=== PATIENT | female | born 2000 | race Caucasian/White ===

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

== ENCOUNTER 2022-07-04 12:30 | Inpatient (IN) | payer MEDICAID ==
[~2022-07-04] VITALS: Ht 162.6 cm; Wt 58.8 kg
[~2022-07-04 12:30] MED LIST changes: -TRAZ-251 PO; -VENL150C2 PO; +VENL150C4 PO
[2022-07-04 13:32] LABS: CLARITY,URINE CLOUDY (Clear); COLOR,URINE YELLOW (Yellow); GLUCOSE, URINE NEGATIVE (Neg); KETONES,URINE NEGATIVE (Neg); LEUKOCYTE ESTERASE ,URINE LARGE (Neg); NITRITES, URINE NEGATIVE (Neg); OCCULT BLOOD,URINE LARGE (Neg); PH,URINE 5.5 (4.8-8.0); PROTEIN,URINE 100 mg/dl (Neg)
[2022-07-04 13:33] LABS: URINE HCG NEGATIVE (NEG)
[2022-07-04 13:41] LABS: UA COLLECTION TYPE NON-SPECIFIED
[2022-07-04 13:42] LABS: BACTERIA,URINE 4+ /HPF (Neg); MUCUS STRANDS NONE SEEN /LPF (Neg); SQUAMOUS EPITHELIAL CELL,UR MODERATE /LPF (FEW); WBC,URINE TNTC /HPF (0-4)
[2022-07-04 13:43] LABS: WBC CLUMPS,URINE MANY /HPF (NEGATIVE)
[2022-07-04] MEDS ORDERED: LIDOcaine Viscous 15ml cup MM STA (14:46)
[2022-07-04] MEDS ORDERED: normal saline 1000ML IV soln IVB ONE (14:50)
[2022-07-04] MEDS ORDERED: ondansetron/PF 4mg/2ml inj IV ONE (14:50)
[2022-07-04 15:17] LABS: BASOPHILS % (AUTO) 0 % (0-1); EOSINOPHILS % (AUTO) 0.1 % (0-6); HEMOGLOBIN 12.9 g/dl (12.0-16.0); LYMPHOCYTES # (AUTO) 0.5 X10'3 (1.1-4.8); MEAN CORPUSCULAR HEMOGLOBIN 28.5 PG (27.0-31.0); MEAN CORPUSCULAR VOLUME 83.6 FL (78-98); MEAN PLATELET VOLUME 8.3 FL (7.4-10.4); MONOCYTES # (AUTO) 1.1 X10'3 (0-0.9); MONOCYTES % (AUTO) 6.2 % (2-12); NEUTROPHILS % (AUTO) 90.7 % (42-75); PLATELET COUNT 278 X10'3 (140-440); RED BLOOD COUNT 4.54 X10'6 (4.20-5.60); RED CELL DISTRIBUTION WIDTH 13.8 % (11.5-14.5); WHITE BLOOD COUNT 17.6 X10'3 (4.5-11.0)
[2022-07-04 15:40] LABS: ALANINE AMINOTRANSFERASE 20 U/L (12-78); ALBUMIN 2.6 G/DL (3.4-5.0); ALBUMIN/GLOBULIN RATIO 0.5 (1.1-1.5); ALKALINE PHOSPHATASE 120 IU/L (20-180); ANION GAP 15 (8-16); ASPARTATE AMINO TRANSFERASE 24 U/L (10-37); BILIRUBIN,TOTAL 0.6 MG/DL (0.1-1.0); BLOOD UREA NITROGEN 38 MG/DL (7-18); BUN/CREATININE RATIO 12.7 (6.6-38.0); CALCIUM 8.9 MG/DL (8.5-10.1); CHLORIDE 93 MMOL/L (99-107); CREATININE 2.99 MG/DL (0.40-0.90); GLUCOSE 88 MG/DL (70-104); POTASSIUM 3.1 MMOL/L (3.5-5.1); SODIUM 134 MMOL/L (135-145); TOTAL CARBON DIOXIDE 26.1 MMOL/L (24-32); TOTAL PROTEIN 7.9 G/DL (6.4-8.2); eGFR 20 ML/MIN
[2022-07-04] MEDS ORDERED: CefTRIAXone/D5W-Rocephin 1gm 50 ML IV STA (15:45)
[2022-07-04] MEDS ORDERED: VENL75CA61 PO (15:59)
[2022-07-04] MEDS ORDERED: HYDROcodone/acetaminophen 5mg/325mg tablet PO PRN (16:25)
[2022-07-04] MEDS ORDERED: docusate sod 100mg capsule PO PRN (16:25)
[2022-07-04] MEDS ORDERED: ondansetron/PF 4mg/2ml inj IV PRN (16:25)
[2022-07-04] MEDS ORDERED: POTASSIUM BICARB 20meq eff tab 20 MEQ TABLET.EFF PO PRN ×2 (16:25)
[2022-07-04] MEDS ORDERED: acetaminophen 325mg tablet PO PRN (16:25)
[2022-07-04] MEDS ORDERED: magnesium 2GM in 50ml NS 50 ML IV PRN (16:25)
[2022-07-04] MEDS ORDERED: magnesium hydroxide 30ml (MOM) UD suspension PO PRN (16:25)
[2022-07-04] MEDS ORDERED: mag hydrox/Alum hydrox/simeth 30ml oral suspension PO PRN (16:25)
[2022-07-04] MEDS ORDERED: HYDROcodone/acetaminophen 10/325mg tab PO PRN (16:25)
[2022-07-04] MEDS ORDERED: magnesium 4gm in 100ml NS 100 ML IV PRN (16:25)
[2022-07-04] MEDS ORDERED: LORazepam 0.5 MG tablet PO PRN (16:35)
[2022-07-04] MEDS ORDERED: hydrOXYzine 25 MG tablet PO PRN (16:35)
--- NOTE | 2022-07-04 16:41 | NUR ---
TO CT VIA WC
[2022-07-04] MEDS: normal saline 1000ml 1,000 ML IV SCH (18:23)
[2022-07-04] MEDS: K and/or MAG REPLACEMENT MC SCH (19:47)
--- NOTE | 2022-07-04 19:58 | NUR ---
Pt ambulated to bathroom with a steady gait.
[2022-07-04] MEDS: acetaminophen 325mg tablet PO PRN (21:32)
[2022-07-05] MEDS: normal saline 1000ml 1,000 ML IV SCH ×3 (02:25→22:50)
--- NOTE | 2022-07-05 07:00 | NUR ---
Patient in room ORTHO 4016. I have received report from Nakia SALAZAR and had the opportunity to ask questions and assume patient care.
--- NOTE | 2022-07-05 07:02 | NUR ---
Report called to MARIE Zhang.
[2022-07-05] MEDS: venlafaxine XR 75mg capsule (Q24H) PO SCH ×2 (08:00→09:45)
[2022-07-05] MEDS: K and/or MAG REPLACEMENT MC SCH ×2 (08:00→20:00)
[2022-07-05 08:18] LABS: BASOPHILS % (AUTO) 0.1 % (0-1); EOSINOPHILS % (AUTO) 0.1 % (0-6); HEMOGLOBIN 11.9 g/dl (12.0-16.0); LYMPHOCYTES # (AUTO) 0.8 X10'3 (1.1-4.8); LYMPHOCYTES % (AUTO) 6.4 % (21-51); MEAN CORPUSCULAR HGB CONC 33.2 g/dL (33.0-36.5); MEAN CORPUSCULAR VOLUME 84.5 FL (78-98); MEAN PLATELET VOLUME 7.9 FL (7.4-10.4); MONOCYTES # (AUTO) 1.1 X10'3 (0-0.9); MONOCYTES % (AUTO) 9.1 % (2-12); NEUTROPHILS # (AUTO) 10.5 X10'3 (1.8-7.7); NEUTROPHILS % (AUTO) 84.3 % (42-75); PLATELET COUNT 254 X10'3 (140-440); RED BLOOD COUNT 4.26 X10'6 (4.20-5.60); RED CELL DISTRIBUTION WIDTH 14.4 % (11.5-14.5); WHITE BLOOD COUNT 12.5 X10'3 (4.5-11.0)
[2022-07-05 08:35] LABS: D-DIMER 2.07 MG/L FEU (0-0.50)
[2022-07-05 08:44] LABS: ALANINE AMINOTRANSFERASE 17 U/L (12-78); ALBUMIN 2.1 G/DL (3.4-5.0); ALBUMIN/GLOBULIN RATIO 0.4 (1.1-1.5); ALKALINE PHOSPHATASE 130 IU/L (20-180); ANION GAP 15 (8-16); ASPARTATE AMINO TRANSFERASE 30 U/L (10-37); BILIRUBIN,TOTAL 0.6 MG/DL (0.1-1.0); BLOOD UREA NITROGEN 32 MG/DL (7-18); BUN/CREATININE RATIO 13.3 (6.6-38.0); CALCIUM 8.6 MG/DL (8.5-10.1); CHLORIDE 102 MMOL/L (99-107); CREATININE 2.41 MG/DL (0.40-0.90); GLUCOSE 89 MG/DL (70-104); MAGNESIUM 2.2 MG/DL (1.5-2.4); SODIUM 142 MMOL/L (135-145); TOTAL CARBON DIOXIDE 25.2 MMOL/L (24-32); TOTAL PROTEIN 6.8 G/DL (6.4-8.2); eGFR 26 ML/MIN
[2022-07-05 08:50] LABS: POTASSIUM 2.6 MMOL/L (3.5-5.1)
[2022-07-05 08:56] LABS: C-REACTIVE PROTEIN 33.99 MG/DL (0.0-0.5)
[2022-07-05] MEDS: CefTRIAXone/D5W-Rocephin 1gm 50 ML IV SCH (09:45)
[2022-07-05 11:08] VITALS: BP 93/48
[2022-07-05] MEDS ORDERED: potassium Cl 20 mEq SR tablet PO PRN (11:35)
[2022-07-05] MEDS: potassium Cl 20 mEq SR tablet PO PRN ×2 (12:43→19:51)
[2022-07-05] MEDS: potassium CL 10mEq/100ml bag 100 ML IV PRN ×3 (13:57→17:10)
[2022-07-05 18:00] VITALS: BP 114/81
--- NOTE | 2022-07-05 18:23 | NUR ---
Problems reprioritized. Patient report given, questions answered & plan of care reviewed with Teresa SALAZAR.
--- NOTE | 2022-07-05 18:54 | NUR ---
Patient in room ORTHO 4016. I have received report from MALI SALAZAR and had the opportunity to ask questions and assume patient care.
[2022-07-05] MEDS: enoxaparin 30mg/0.3ml syringe SUBCUT SCH ×2 (19:50→20:00)
[2022-07-05 22:00] VITALS: BP 127/87
[2022-07-05] MEDS: acetaminophen 325mg tablet PO PRN (22:06)
[2022-07-06] MEDS: potassium Cl 20 mEq SR tablet PO PRN (00:24)
--- NOTE | 2022-07-06 06:16 | NUR ---
Patient in room ORTHO 4016. I have received report from Teresa SALAZAR and had the opportunity to ask questions and assume patient care.
--- NOTE | 2022-07-06 06:16 | NUR ---
40MEQ K+ REPLACEMENT GIVEN X 2 LAST NIGHT IN ADDITION TO 3 BAGS 10MEQ OF IV REPLACEMENT. WILL CHECK LABS THIS AM FOR ANY FURTHER REPLACEMENT NEEDS. Problems reprioritized. Patient report given, questions answered & plan of care reviewed with MALI SALAZAR.
[2022-07-06 06:22] VITALS: BP 123/81
[2022-07-06 07:43] LABS: BASOPHILS % (AUTO) 0.3 % (0-1); EOSINOPHILS # (AUTO) 0.1 X10'3 (0-0.9); EOSINOPHILS % (AUTO) 0.9 % (0-6); HEMOGLOBIN 10.6 g/dl (12.0-16.0); LYMPHOCYTES # (AUTO) 1.8 X10'3 (1.1-4.8); LYMPHOCYTES % (AUTO) 17.3 % (21-51); MEAN CORPUSCULAR HEMOGLOBIN 28.3 PG (27.0-31.0); MEAN CORPUSCULAR HGB CONC 33.2 g/dL (33.0-36.5); MEAN CORPUSCULAR VOLUME 85.1 FL (78-98); MEAN PLATELET VOLUME 7.9 FL (7.4-10.4); MONOCYTES # (AUTO) 1.1 X10'3 (0-0.9); MONOCYTES % (AUTO) 10.3 % (2-12); NEUTROPHILS # (AUTO) 7.3 X10'3 (1.8-7.7); NEUTROPHILS % (AUTO) 71.2 % (42-75); PLATELET COUNT 281 X10'3 (140-440); RED BLOOD COUNT 3.76 X10'6 (4.20-5.60); RED CELL DISTRIBUTION WIDTH 14.6 % (11.5-14.5); WHITE BLOOD COUNT 10.3 X10'3 (4.5-11.0)
[2022-07-06] MEDS: venlafaxine XR 75mg capsule (Q24H) PO SCH (07:48)
[2022-07-06] MEDS: CefTRIAXone/D5W-Rocephin 1gm 50 ML IV SCH (07:48)
[2022-07-06] MEDS: enoxaparin 30mg/0.3ml syringe SUBCUT SCH ×2 (07:49→08:00)
[2022-07-06 07:56] LABS: D-DIMER 1.41 MG/L FEU (0-0.50)
[2022-07-06] MEDS: K and/or MAG REPLACEMENT MC SCH (08:00)
[2022-07-06 08:15] LABS: ALANINE AMINOTRANSFERASE 24 U/L (12-78); ALBUMIN 1.7 G/DL (3.4-5.0); ALBUMIN/GLOBULIN RATIO 0.4 (1.1-1.5); ALKALINE PHOSPHATASE 142 IU/L (20-180); ANION GAP 12 (8-16); ASPARTATE AMINO TRANSFERASE 36 U/L (10-37); BILIRUBIN,TOTAL 0.4 MG/DL (0.1-1.0); BLOOD UREA NITROGEN 20 MG/DL (7-18); BUN/CREATININE RATIO 12.7 (6.6-38.0); C-REACTIVE PROTEIN 24.58 MG/DL (0.0-0.5); CHLORIDE 105 MMOL/L (99-107); CREATININE 1.57 MG/DL (0.40-0.90); GLUCOSE 69 MG/DL (70-104); POTASSIUM 3.7 MMOL/L (3.5-5.1); SODIUM 142 MMOL/L (135-145); TOTAL CARBON DIOXIDE 25.1 MMOL/L (24-32); TOTAL PROTEIN 6.1 G/DL (6.4-8.2); eGFR 42 ML/MIN
[2022-07-06] MEDS: normal saline 1000ml 1,000 ML IV SCH (08:43)
[2022-07-06] MEDS: acetaminophen 325mg tablet PO PRN (08:51)
[2022-07-06 11:42] VITALS: BP 108/75
[2022-07-06] MEDS ORDERED: LEVO750T68 PO (12:06)
[2022-07-06] MEDS ORDERED: ASPI81TA52 PO (13:23)
--- NOTE | 2022-07-06 13:49 | NUR ---
Patient discharged home at this time. Patient is stable for discharge Patient discharge medications were discussed with patient and verbal understanding was expressed. Patient next dose of medications were also discussed. Patient IV taken out at the time of discharge canula whole and intact upon inspection. Iv site showed minimal bleeding as well.
== END 2022-07-06 13:19 | disposition home or self-care (01) | DRG 720 ==
LOC: ER 12:32 → ED HOLD 16:29 → ORTHO 4S 07-05 07:30
PROVIDERS: ADMIT Family Medicine; ATTEND Family Medicine
DX: A41.9 Sepsis, unspecified organism (principal); N17.0 Acute kidney failure with tubular necrosis; U07.1 COVID-19; F32.A Depression, unspecified; N20.0 Calculus of kidney; F41.9 Anxiety disorder, unspecified; E87.1 Hypo-osmolality and hyponatremia; E86.0 Dehydration; E87.6 Hypokalemia; N10 Acute pyelonephritis; Z80.1 Family history of malignant neoplasm of trachea, bronchus and lung; Z28.310 Unvaccinated for COVID-19; Z79.899 Other long term (current) drug therapy; Z82.49 Family history of ischemic heart disease and other diseases of the circulatory system
CPT/HCPCS: 36415; 74176; 80053; 81001; 81025; 83605; 83735; 84145; 85025; 85379; 86140; 87040; 87077; 87081; 87088; 87186; 87635; 99285; C9803; G0378; J0696; J1650; J2405; J3480; J7030

== ENCOUNTER 2023-01-09 16:14 | Emergency (ER) | payer MEDICAID ==
[~2023-01-09] VITALS: Ht 167.6 cm; Wt 60.0 kg
[~2023-01-09 16:14] MED LIST changes: +ASPI81TA52 PO; -HYDR25CA PO; +LEVO750T68 PO; -VENL150C4 PO; +VENL75CA61 PO
[2023-01-09 16:58] VITALS: BP 110/64
[2023-01-09] MEDS ORDERED: DOXY1TAB3 PO (18:42)
[2023-01-09] MEDS ORDERED: PREN1CAP37 PO (18:46)
== END 2023-01-09 19:23 | disposition left against medical advice (07) ==
LOC: ER 16:15
DX: O26.899 Other specified pregnancy related conditions, unspecified trimester (principal); Z3A.00 Weeks of gestation of pregnancy not specified
CPT/HCPCS: 99283

== ENCOUNTER 2025-07-23 13:00 | Emergency (ER) | payer MEDICAID ==
[~2025-07-23] VITALS: Ht 167.6 cm; Wt 74.1 kg
[~2025-07-23 13:00] MED LIST changes: +DOXY1TAB3 PO; +PREN1CAP37 PO
--- NOTE | 2025-07-23 13:12 | Physician Documentation ---
History of Present Illness ~ Chief Complaint: Mental Health Eval Stated Complaint: MENTAL HEALTH Time Seen by MD: 13:23 Primary Medical Doctor: Gamaliel ROSAS 25 Year old female presents to the ED complaint not wanting to be here any longer and . She says that is he has no plan to harm herself and does not want to . However when discussing with her what occurred today she did report that while at work she was looking at knives in the wall on considering harming herself while at work Any previous self-harm. States he has been diagnosed with depression and anxiety. Takes clonidine Wellbutrin Zoloft and propranolol Day of Onset: Jul 23, 2025 Medication Reconciliation Allergies: Coded Allergies: No Known Allergies (Unverified , 04/09/12) Scheduled Aspirin (Aspirin EC), 1 TAB PO DAILY Bupropion HCl (Bupropion Xl), 2 TAB PO DAILY, (Reported) Doxylamine/Pyridoxine HCl (Diclegis Dr 10-10 mg Tablet), 2 TAB PO HS Levofloxacin (Levofloxacin), 750 MG PO DAILY 93/Iron/Folate 9/Dha (Westgel Dha Softgel), 1 CAP PO DAILY Sertraline HCl (Sertraline HCl), 1 TAB PO DAILY, (Reported) Venlafaxine Hcl (Venlafaxine Hcl Er), 3 CAP PO DAILY, (Reported) Scheduled PRN Propranolol Hcl* (Inderal*), 1 TAB PO BID PRN for for anxiety/agitation, (Reported) Miscellaneous Medications Clonidine HCl (Clonidine HCl), (Reported) Discontinued Medications Bupropion HCl (Wellbutrin Sr), 1 TAB PO BID, (Reported) Discontinued Reason: patient no longer taking Past Medical History Past Medical History: Anxiety, Depression Past Surgical History: no surgical history Patient History: FH: gallbladder disease MOTHER Maternal grandmother FH: heart disease Paternal grandfather Paternal great grandfather FH: lung cancer Paternal grandfather Paternal great grandfather FH: psoriatic arthritis MOTHER Alcohol Use: None Drug Use: none Lives In: Home Occupation: student Review of Systems All Other Systems at this time: Reviewed and Negative Physical Exam Physical Exam General: Alert, no apparent distress. Cardiovascular: Regular rate and rhythm, no murmurs. Gastrointestinal: Soft, nontender, nondistended. Bowels sounds present. Neurologic: Oriented x4. Psychiatric: Normal mood and affect. Skin: Normal color, warm and dry. No edema, no ecchymosis. Progress Results/Orders Results/Orders Vital Signs 07/23/25 07/23/25 13:08 13:15 Temp 98.4 Pulse 89 Resp 18 18 B/P (MAP) 118/80 Pulse Ox 98 O2 Flow Rate 0 Laboratory Tests Test 07/23/25 13:30 07/23/25 13:43 Urine Specimen Description Cln catch midstream Urine Color Straw Urine Clarity Clear Urine pH 6.5 Urine Specific Gibson <=1.005 Urine Protein Negative Urine Glucose (UA) Negative Urine Ketones Negative Urine Occult Blood Moderate H Urine Nitrite Negative Urine Bilirubin Negative Urine Urobilinogen 0.2 Urine Leukocyte Esterase Negative Urine RBC 0-2 Urine WBC 0-4 Urine Squamous Epithelial Cells Few Urine Bacteria Few Urine Mucus None seen Volume Urine Centrifuged 10 ml Urine HCG, Qualitative Negative Urine Comment Urine Opiates Screen Negative Urine Methadone Screen Negative Urine Fentanyl Screen Negative Urine Barbiturates Screen Negative Urine Phencyclidine Screen Negative Urine Amphetamines Screen Negative Urine Benzodiazepines Screen Negative Urine Cocaine Screen Negative Urine Cannabinoids Screen Negative Drug Screen Comment White Blood Count 8.9 Red Blood Count 4.65 Hemoglobin 13.4 Hematocrit 40.2 Mean Corpuscular Volume 86.5 Mean Corpuscular Hemoglobin 28.9 Mean Corpuscular Hemoglobin Concent 33.4 Red Cell Distribution Width 13.1 Platelet Count 341 Mean Platelet Volume 7.9 Neutrophils (%) (Auto) 73.7 Lymphocytes (%) (Auto) 20.0 L Monocytes (%) (Auto) 5.1 Eosinophils (%) (Auto) 0.7 Basophils (%) (Auto) 0.5 Neutrophils # (Auto) 6.6 Lymphocytes # (Auto) 1.8 Monocytes # (Auto) 0.5 Eosinophils # (Auto) 0.1 Basophils # (Auto) 0.0 CBC Comment Sodium Level 139 Potassium Level 3.9 Chloride Level 104 Carbon Dioxide Level 29.8 Anion Gap 5 L Blood Urea Nitrogen 8 Creatinine 0.80 Estimated GFR/1.73 m2 89 BUN/Creatinine Ratio 10.0 Glucose Level 103 Calcium Level 9.2 Albumin 3.7 Thyroid Stimulating Hormone (TSH) 1.96 Chemistry Comments Ethyl Alcohol Level < 10 Medical Decision Making Findings Patient does not present acutely ill outside of concerns of suicide ideation. I am going to medically clear her at this time for evaluation by [facility] Differential Dx:Considerations: Include: Alcohol abuse, Anxiety, Bipolar disorder, Conversion disorder, Depression, Encephaloathy, Homicidal, Panic d isorder, Personality disorder, Schizophrenia, Substance abuse, Suicidal, Other Departure Disposition: [facility] Impression: Primary Impression: Depression Additional Impression: Suicidal ideation Condition: Stable Additional Instructions: Transfer orders for [facility]: At this time there is no evidence of an emergent medical condition that would preclude (admission/transfer) to a psychiatric unit via [facility] protocol for further psychiatric, as well as medical evaluation and treatment. At this time I have no reason to believe that transfer via [facility] protocol would have serious medical compromise in the patient's health. Referrals: NO PRIMARY CARE PROVIDER (PCP) Education Educated: Patient Educated regarding: diagnosis, treatment, prognosis, need for follow up Signature Scribe Signature: j Attestation: Scribed for Marky Vanessa Production Team Manager by Marky Courtney NP . 07/23/25 14:45 MARKY VANESSA NP Jul 23, 2025 13:12 PAOLA OLMSTEAD MD Jul 23, 2025 18:55
[2025-07-23 13:51] LABS: LEUKOCYTE ESTERASE ,URINE NEGATIVE (Neg); NITRITES, URINE NEGATIVE (Neg); OCCULT BLOOD,URINE MODERATE (Neg)
[2025-07-23 13:54] LABS: UA COLLECTION TYPE CLN CATCH MIDSTREAM
[2025-07-23 13:55] LABS: URINE HCG NEGATIVE (NEG)
[2025-07-23 13:56] LABS: MEAN PLATELET VOLUME 7.9 FL (7.4-10.4); RED CELL DISTRIBUTION WIDTH 13.1 % (11.5-14.5)
[2025-07-23 14:00] LABS: MUCUS STRANDS NONE SEEN /LPF (Neg); SQUAMOUS EPITHELIAL CELL,UR FEW /LPF (FEW)
[2025-07-23 14:15] LABS: CREATININE 0.80 MG/DL (0.40-0.90); TOTAL CARBON DIOXIDE 29.8 MMOL/L (24-32); eCRCL 102 ML/MIN; eGFR 89 ML/MIN
[2025-07-23 14:20] LABS: URINE AMPHETAMINE SCREEN NEGATIVE (Neg); URINE BARBITUATE SCREEN NEGATIVE (Neg); URINE BENZODIAZEPINES SCREEN NEGATIVE (Neg); URINE CANNABINOID SCREEN NEGATIVE (Neg); URINE COCAINE SCREEN NEGATIVE (Neg); URINE METHADONE SCREEN NEGATIVE (Neg); URINE OPIATE SCREEN NEGATIVE (Neg); URINE PHENCYCLIDINE SCREEN NEGATIVE (Neg)
[2025-07-23 14:24] LABS: ETHANOL < 10 MG/DL (<10)
[2025-07-23] MEDS ORDERED: PROP10TA10 PO (17:59)
[2025-07-23] MEDS ORDERED: CLON0.1T2 (17:59)
[2025-07-23] MEDS ORDERED: SERT-433 PO (17:59)
[2025-07-23] MEDS ORDERED: BUPR-726 PO (17:59)
[2025-07-23] MEDS ORDERED: BUPR150T8 PO (17:59)
[2025-07-23 18:55] VITALS: BP 112/79; PULSE 84; RESP 14; TEMP 97; O2SAT 99
== END 2025-07-23 19:02 | disposition home or self-care (01) ==
LOC: ER 13:00
DX: F32.A Depression, unspecified (principal); R45.851 Suicidal ideations; F41.9 Anxiety disorder, unspecified; Z79.82 Long term (current) use of aspirin; Z79.899 Other long term (current) drug therapy
CPT/HCPCS: 36415; 80048; 80305; 80320; 81001; 81025; 84443; 85025; 99284